=== PATIENT | female | born 1960 | race Caucasian/White ===

== ENCOUNTER 2018-01-30 16:36 | Observation (INO) ==
--- NOTE | 2018-01-30 16:45 | Emergency Department Note ---
Disposition Clinical Impression: Epistaxis Disposition: Home, Self-Care Condition: Good Instructions: Epistaxis (ED) Referrals: [facility] [Provider Group] Melinda Soto CNP [Primary Care Provider] - Forms: ED Satisfaction Letter General Adult HPI - General Chief complaint: ED Epistaxis Stated complaint: Nose bleed Time Seen by Provider: 01/30/18 16:44 Source: patient, family Limitations: no limitations - History of Present Illness Pain Scale: 0 - Related Data Home Medications Medication Instructions Recorded Confirmed Aspirin [Lo-Dose Aspirin EC] 81 mg PO DAILY 06/13/17 01/20/18 Bolus Insulin Pump, 200 Unit 75 - 80 unit MC DAILY 06/13/17 01/20/18 [Onetouch Via] Cholecalciferol (D-3) [Vitamin D] 5,000 unit PO DAILY 06/13/17 01/20/18 Clopidogrel Bisulfate [Plavix] 75 mg PO DAILY 06/13/17 01/20/18 Fish Oil/Dha/Epa [Fish Oil 1,200 1 each PO HS 06/13/17 01/20/18 mg Fish Oil] Furosemide [Lasix] 40 mg PO DAILY 06/13/17 01/20/18 Isosorbide MONOnitrate [Isosorbide 120 mg PO DAILY 06/13/17 01/20/18 Mononitrate ER] Levothyroxine [Synthroid] 100 mcg PO 0630 06/13/17 01/20/18 Losartan Potassium [Cozaar] 50 mg PO DAILY 06/13/17 01/20/18 Metoprolol [Lopressor] 50 mg PO BID 06/13/17 01/20/18 Omeprazole [PriLOSEC] 20 mg PO BID 06/13/17 01/20/18 Pantoprazole Sodium [Protonix] 40 mg PO DAILY 06/13/17 01/20/18 Pramlintide Acetate [Symlinpen 60] 1,500 mcg SQ DAILY 06/13/17 01/20/18 Pravastatin Sodium [Pravachol] 80 mg PO HS 06/13/17 01/20/18 Ranolazine [Ranexa] 500 mg PO BID 06/13/17 01/20/18 Ferrous Sulfate [Iron] 325 mg PO DAILY 01/20/18 01/20/18 Allergies Allergy/AdvReac Type Severity Reaction Status Date / Time bumetanide [From Bumex] Allergy See Verified 01/20/18 08:34 Comments Uizbflj-Dgl-Wbp Reductase Allergy Muscle Pain Verified 01/20/18 08:34 Inhibitor [Statins] SANKET Inhibitors AdvReac Cough Verified 01/20/18 08:34 codeine AdvReac Nausea Verified 01/20/18 08:34 promethazine [From Phenergan] AdvReac Nausea Verified 01/20/18 08:34 Past Medical History - Past Medical History Medical history: Reports: coronary artery disease, diabetes, hyperlipidemia, hypertension Surgical history: Reports: cholecystectomy Psychiatric history: Reports: anxiety - Social History Smoking Status: Never smoker Smokeless Tobacco Status: No Alcohol use: Reports: none Drug use: Reports: none Physical Exam - General Limitations: no limitations General appearance: alert, in no apparent distress Course Vital Signs Temperature 98.1 F 01/30/18 16:37 Pulse Rate 77 01/30/18 16:37 Respiratory Rate 18 01/30/18 16:37 Blood Pressure 180/75 01/30/18 16:37 O2 Sat by Pulse Oximetry 92 01/30/18 16:37 Temperature 98.1 F 01/30/18 16:37 Pulse Rate 77 01/30/18 16:37 Respiratory Rate 18 01/30/18 16:37 Blood Pressure 180/75 01/30/18 16:37 O2 Sat by Pulse Oximetry 92 01/30/18 16:37 Oxygen Delivery Oxygen Delivery Room Air Medical Decision Making - Lab Data Result diagrams: 01/30/18 18:31 Lab Results 01/30/18 Range/Units 18:31 WBC 8.1 (4.3-11.1) K/mcL RBC 4.09 (3.82-4.97) M/mcL Hgb 11.9 (11.5-15.4) g/dL Hct 37.8 (35.3-44.9) % MCV 92.4 (83.0-100.0) fL MCH 29.1 (28.0-33.3) pg MCHC 31.5 L (31.6-35.5) g/dL RDW 13.4 (11.5-14.5) % Plt Count 288 (140-400) K/mcL MPV 11.2 (9.4-12.4) fL Immature Gran % 0.2 (0-4) % Seg Neutrophils % 61.0 % Lymphocytes % 26.5 % Monocytes % 7.5 % Eosinophils % 4.1 % Basophils % 0.7 % Neutrophils # 5.0 (1.6-8.9) K/mcL Lymphocytes # 2.2 (0.6-4.6) K/mcL Monocytes # 0.6 (0.0-1.3) K/mcL Eosinophils # 0.3 (0.0-0.6) K/mcL Basophils # 0.1 (0.0-0.2) K/mcL Critical Care Time Critical Care Time: Yes Total Critical Care Time: 30 Attestation: The high probability of a clinically significant, sudden or life threatening deterioration of the [] system(s) required my full and direct attention, intervention and personal management. The aggregate critical care time was [] minutes. This time is in addition to time spent performing reported procedures but includes the following: [] Data Review and interpretation [] Patient assessment and monitoring of vital signs [] Documentation [] Medication orders and management Attestation Statement - Attestation Attestation: I examined this patient and my medical decision-making was reviewed with the Resident Physician. I agree with the documented findings, disposition and treatment plan as described except to the extent set forth below. [id number] time provided Patient presents with right-sided epistaxis after having a manometry study of her esophagus earlier today. She takes Plavix. Denies taking other blood thinners. Nasal clamp in place at the time of arrival 18:00: right sided anterior 4.5 cm rhino rocket placed by resident under my supervision. we will observe 18:44: Oosing ensued out of the left nare. Packing removed and replaced with a posterior pack. Procedural sedation with IV fentanyl and Versed utilized to make the patient more comfortable during the procedure. The nare would only accommodate approximately three fourths of the packing due to resistance. Patient will require admission. Bleeding has subsided at this time. ENT consulted
[2018-01-30] MEDS ORDERED: Phenylephrine Nasal 0.5% 15 ML BOTTLE NS ONE (16:47)
[2018-01-30] MEDS ORDERED: Lidocaine Viscous Oral Soln 15 ML SOLUTION MM ONE ×2 (16:48→18:36)
--- NOTE | 2018-01-30 17:01 | Emergency Department Note ---
Disposition Clinical Impression: Epistaxis, Hyperglycemia Chronic kidney disease Qualifiers: Chronic kidney disease stage: unspecified stage Qualified Code(s): N18.9 - Chronic kidney disease, unspecified Disposition: Home, Self-Care Condition: Good Instructions: Epistaxis (ED) Referrals: Melinda Soto CNP [Primary Care Provider] - [facility] [Provider Group] Forms: ED Satisfaction Letter Epistaxis HPI - General Chief complaint: ED Epistaxis Stated complaint: Nose bleed Time Seen by Provider: 01/30/18 16:44 Source: patient, family Mode of arrival: ambulatory Limitations: no limitations Nursing Notes Reviewed: Yes Vital Signs Reviewed: Yes - History of Present Illness HPI Narrative: 57-year-old female presents for evaluation of epistaxis. Patient had a recent esophageal manometry procedure by Dr. Coffey with a went in through the nare. Patient states she has been bleeding since then. Patient is on Plavix. Patient notes the bleeding initially was in the right and there and did not feel it dripping down the back of her throat. Patient's been bleeding since the procedure and has not improved with simple pressure. Patient does note clots. Patient denies any other symptoms. - Related Data Home Medications Medication Instructions Recorded Confirmed Aspirin [Lo-Dose Aspirin EC] 81 mg PO DAILY 06/13/17 01/20/18 Bolus Insulin Pump, 200 Unit 75 - 80 unit MC DAILY 06/13/17 01/20/18 [Onetouch Via] Cholecalciferol (D-3) [Vitamin D] 5,000 unit PO DAILY 06/13/17 01/20/18 Clopidogrel Bisulfate [Plavix] 75 mg PO DAILY 06/13/17 01/20/18 Fish Oil/Dha/Epa [Fish Oil 1,200 1 each PO HS 06/13/17 01/20/18 mg Fish Oil] Furosemide [Lasix] 40 mg PO DAILY 06/13/17 01/20/18 Isosorbide MONOnitrate [Isosorbide 120 mg PO DAILY 06/13/17 01/20/18 Mononitrate ER] Levothyroxine [Synthroid] 100 mcg PO 0630 06/13/17 01/20/18 Losartan Potassium [Cozaar] 50 mg PO DAILY 06/13/17 01/20/18 Metoprolol [Lopressor] 50 mg PO BID 06/13/17 01/20/18 Omeprazole [PriLOSEC] 20 mg PO BID 06/13/17 01/20/18 Pantoprazole Sodium [Protonix] 40 mg PO DAILY 06/13/17 01/20/18 Pramlintide Acetate [Symlinpen 60] 1,500 mcg SQ DAILY 06/13/17 01/20/18 Pravastatin Sodium [Pravachol] 80 mg PO HS 06/13/17 01/20/18 Ranolazine [Ranexa] 500 mg PO BID 06/13/17 01/20/18 Ferrous Sulfate [Iron] 325 mg PO DAILY 01/20/18 01/20/18 Allergies Allergy/AdvReac Type Severity Reaction Status Date / Time bumetanide [From Bumex] Allergy See Verified 01/20/18 08:34 Comments Cztjrzg-Uzn-Tnd Reductase Allergy Muscle Pain Verified 01/20/18 08:34 Inhibitor [Statins] SANKET Inhibitors AdvReac Cough Verified 01/20/18 08:34 codeine AdvReac Nausea Verified 01/20/18 08:34 promethazine [From Phenergan] AdvReac Nausea Verified 01/20/18 08:34 All systems ED: reviewed and negative except as stated. Constitutional: Denies: fever Cardiovascular: Denies: chest pain Respiratory: Denies: cough, dyspnea Gastrointestinal: Denies: abdominal pain, nausea, vomiting Past Medical History - Past Medical History Source: patient Medical history: Reports: coronary artery disease, diabetes, hyperlipidemia, hypertension Surgical history: Reports: cholecystectomy Psychiatric history: Reports: anxiety - Social History Smoking Status: Never smoker Smokeless Tobacco Status: No Alcohol use: Reports: none Drug use: Reports: none Physical Exam - General Limitations: no limitations General appearance: alert, in no apparent distress - Head Head exam: atraumatic, normocephalic, normal inspection - Eye Eye exam: Present: normal appearance. Absent: scleral icterus - Expanded ENT Exam External ear exam: Absent: auricular hematoma, auricular trauma Nasal speculum exam: Right: epistaxis (clots noted.) Mouth exam: Present: normal external inspection Throat exam: Present: other (posterior oropharynx blood. no pulsitile bleeding. ) - Neck Neck exam: Present: normal inspection, full ROM - Chest Chest inspection: Present: normal inspection, symmetric chest wall rise - Respiratory Respiratory exam: Present: normal lung sounds bilaterally. Absent: respiratory distress - Cardiovascular Cardiovascular exam: Present: regular rate, normal rhythm. Absent: systolic murmur - Abdominal Exam Abdominal exam: Present: soft - Extremities Exam Extremities exam: Present: normal inspection - Expanded Lower Extremity Exam Neurovascular/Tendon exam: Present: normal capillary refill - Neurological Exam Neurological exam: Present: alert, oriented X3, CN II-XII intact - Skin Skin exam: Present: warm, dry, intact, normal color Course Course Narrative: Patient has epistaxis permanently the right near. Appears BE more posterior oropharynx bleeding. No visualization of anterior bleeding noted. Patient is top localized with lidocaine as well as David-Synephrine. Patient will have conservative measures placed with pressure, if fails with require a pressure packing. - Reevaluation(s) Reevaluation #1: Patient started vomiting. Time: 18:04 Reevaluation #2: Patient now appears to have blood on the left near. Concerns of posterior bleeding of the right near that is now coming out of the left near. Patient still has blood in the posterior oropharynx. Patient will require procedural sedation for posterior nasal packing. Patient did have a right near 7.5 cm posterior anterior nasal packing placed. Patient's packing was placed in the procedural sedation. However resistance was met and approximately one third of the packing was left outside the near. Appears to have hemostatic control while observation in the emergency department. Patient recovered from the procedural sedation well. Time: 18:26 Reevaluation #3: Patient's resting comfortably. Patient appears to have her epistaxis controlled. Patient be admitted to the hospital service for monitoring. Time: 20:13 - Consultations Consultation #1: Spoke with Dr. Do ENT. Consult is placed. Time: 18:52 Vital Signs Temperature 98.1 F 01/30/18 16:37 Pulse Rate 77 01/30/18 16:37 Respiratory Rate 18 01/30/18 16:37 Blood Pressure 180/75 01/30/18 16:37 O2 Sat by Pulse Oximetry 92 01/30/18 16:37 Temperature 98.1 F 01/30/18 16:37 Pulse Rate 78 01/30/18 18:34 Respiratory Rate 20 01/30/18 18:34 Blood Pressure 147/62 01/30/18 18:34 O2 Sat by Pulse Oximetry 97 01/30/18 18:32 Oxygen Delivery Oxygen Delivery [1903] Room Air Oxygen Delivery [1852] Nasal Cannula Oxygen Delivery [1847] Nasal Cannula Oxygen Delivery [1842] Nasal Cannula Oxygen Delivery [1837] Nasal Cannula Oxygen Delivery Room Air Procedures - Epistaxis Control Consent Obtained: verbal consent Time Out Performed: Yes Nostril: right Nose Prepped With: lidocaine, phenylephrine Direct Inspection: unable to visualize Clots Removed by: blowing nose Cautery Used: none Device Inserted: hemostatic balloon Patient Tolerated Procedure: well, no complications - Procedural Sedation Dietary Status: NPO 6 hours prior to procedure H&P (including ROS) documented in medical record: Yes Previous reaction to sedatives/anesthetics: No Dentition: full dentition Airway Assessment: Patient can open mouth completely, TMJ function normal Possible difficult airway: No ASA Classification: CLASS III-Severe systemic disease Plan of Care: Pt appropriate candidate for procedure/moderate/conscious sedation Preparation: data warehousing architect applied, pulse oximeter, capnometry used, supplemental O2 applied, suction/airway equipment at bedside, IV secured Fentanyl: IV Fentanyl Dose: 75 Midazolam: IV Midazolam Dose: 2 Patient Tolerated Procedure: well Complications: none Interventions: oxygen applied Epistaxis - MDM Narrative Medical decision making narrative: Patient presents after nasopharyngeal the manometry procedure with epistaxis. Patient is on Plavix. Patient failed conservative measures with anterior packing with pressure as well as a Rhino Rocket. Patient appears to have more of a posterior bleed. Patient did not tolerate the procedure with anterior packing well. Patient required procedural sedation with fentanyl as well as Versed. Posterior packing was placed however resistance was met and was placed as far as we can. Discussed the case with the on-call ENT. Recommended antibiotics. Patient will be admitted to hospitalist service for evaluation monitoring. Patient is not anemic. Patient does have chronic kidney disease. During the course of the patient's evaluation she was noted be hyperglycemic without eating acidotic. Patient received IV fluids as well as insulin. - Lab Data Lab results reviewed: Yes I reviewed the patient's lab results. Result diagrams: 01/30/18 18:31 01/30/18 18:31 Lab Results 01/30/18 01/30/18 01/30/18 Range/Units 18:31 18:31 18:31 WBC 8.1 (4.3-11.1) K/mcL RBC 4.09 (3.82-4.97) M/mcL Hgb 11.9 (11.5-15.4) g/dL Hct 37.8 (35.3-44.9) % MCV 92.4 (83.0-100.0) fL MCH 29.1 (28.0-33.3) pg MCHC 31.5 L (31.6-35.5) g/dL RDW 13.4 (11.5-14.5) % Plt Count 288 (140-400) K/mcL MPV 11.2 (9.4-12.4) fL Immature Gran % 0.2 (0-4) % Seg Neutrophils % 61.0 % Lymphocytes % 26.5 % Monocytes % 7.5 % Eosinophils % 4.1 % Basophils % 0.7 % Neutrophils # 5.0 (1.6-8.9) K/mcL Lymphocytes # 2.2 (0.6-4.6) K/mcL Monocytes # 0.6 (0.0-1.3) K/mcL Eosinophils # 0.3 (0.0-0.6) K/mcL Basophils # 0.1 (0.0-0.2) K/mcL PT 10.6 (9.4-12.1) Seconds INR 1.0 Sodium 134 L (136-145) mEq/L Potassium 5.2 H (3.5-5.1) mEq/L Chloride 101 (98-107) mEq/L Carbon Dioxide 24 (23-29) mEq/L BUN 56 H (6-20) mg/dL Creatinine 2.26 H (0.60-1.20) mg/dL Est GFR ( Amer) 27 L (> 60) Est GFR (Non-Af Amer) 22 L (> 60) BUN/Creatinine Ratio 25 (6-26) Glucose 548 H* (70-105) mg/dL Calculated Osmolality 318 H (280-300) Calcium 8.3 L (8.6-10.3) mg/dL Total Bilirubin 0.5 (0.3-1.0) mg/dL AST 12 L (13-39) Units/L ALT 17 (7-52) Units/L Alkaline Phosphatase 69 (34-104) Units/L Serum Total Protein 6.4 (6.4-8.9) g/dL Albumin 3.8 (3.5-5.7) g/dL Globulin 2.6 (2.4-3.5) g/dL Albumin/Globulin Ratio 1.5 (1.1-2.2) Blood Type Antibody Screen 01/30/18 Range/Units 18:31 WBC (4.3-11.1) K/mcL RBC (3.82-4.97) M/mcL Hgb (11.5-15.4) g/dL Hct (35.3-44.9) % MCV (83.0-100.0) fL MCH (28.0-33.3) pg MCHC (31.6-35.5) g/dL RDW (11.5-14.5) % Plt Count (140-400) K/mcL MPV (9.4-12.4) fL Immature Gran % (0-4) % Seg Neutrophils % % Lymphocytes % % Monocytes % % Eosinophils % % Basophils % % Neutrophils # (1.6-8.9) K/mcL Lymphocytes # (0.6-4.6) K/mcL Monocytes # (0.0-1.3) K/mcL Eosinophils # (0.0-0.6) K/mcL Basophils # (0.0-0.2) K/mcL PT (9.4-12.1) Seconds INR Sodium (136-145) mEq/L Potassium (3.5-5.1) mEq/L Chloride (98-107) mEq/L Carbon Dioxide (23-29) mEq/L BUN (6-20) mg/dL Creatinine (0.60-1.20) mg/dL Est GFR ( Amer) (> 60) Est GFR (Non-Af Amer) (> 60) BUN/Creatinine Ratio (6-26) Glucose (70-105) mg/dL Calculated Osmolality (280-300) Calcium (8.6-10.3) mg/dL Total Bilirubin (0.3-1.0) mg/dL AST (13-39) Units/L ALT (7-52) Units/L Alkaline Phosphatase (34-104) Units/L Serum Total Protein (6.4-8.9) g/dL Albumin (3.5-5.7) g/dL Globulin (2.4-3.5) g/dL Albumin/Globulin Ratio (1.1-2.2) Blood Type A POSITIVE Antibody Screen NEGATIVE - EKG Data EKG attestation: Yes I reviewed and interpreted this EKG. EKG shows normal: sinus rhythm Rate: normal Rhythm: NSR [place]/QRS: normal Interpretation: no acute changes Wilbert - Wilbert Situation: Demographics Background: Presenting Complaint Assessment: Vital Signs, Course and respsone to treatment, Patient/Family Expectation Recommendation: Barrier(s) to disposition, Recommendation based on pending studies, treatments, or consults Wilbert Report Given to: Dr. Korey Atkins Repor Time: 20:13
[2018-01-30] MEDS ORDERED: Ondansetron ODT 4 MG TAB.RAPDIS SL ONE (18:01)
[2018-01-30] MEDS ORDERED: *HR* Ketamine 500 MG/5 ML MDV IVP ONE (18:14)
[2018-01-30] MEDS ORDERED: *HR* FentaNYL (PF) 100 MCG/2 ML VIAL IVP ONE (18:19)
[2018-01-30] MEDS ORDERED: 0.9 % Sodium Chloride 1,000 ML IVC ONE (18:19)
[2018-01-30] MEDS ORDERED: *HR* Midazolam HCl 2 MG/2 ML VIAL IVP ONE (18:19)
[2018-01-30] MEDS ORDERED: Lidocaine Viscous Oral Soln 15 ML SOLUTION ONE (18:36)
[2018-01-30 18:47] LABS: Basophils # 0.1 K/mcL (0.0-0.2); Basophils % 0.7 %; Eosinophils # 0.3 K/mcL (0.0-0.6); Eosinophils % 4.1 %; Hematocrit 37.8 % (35.3-44.9); Hemoglobin 11.9 g/dL (11.5-15.4); Immature Granulocytes % 0.2 % (0-4); Lymphocytes # 2.2 K/mcL (0.6-4.6); Lymphocytes % 26.5 %; Mean Corpuscular HGB Conc 31.5 g/dL (31.6-35.5); Mean Corpuscular Hemoglobin 29.1 pg (28.0-33.3); Mean Corpuscular Volume 92.4 fL (83.0-100.0); Mean Platelet Volume 11.2 fL (9.4-12.4); Monocytes # 0.6 K/mcL (0.0-1.3); Monocytes % 7.5 %; Platelet Count 288 K/mcL (140-400); Red Blood Count 4.09 M/mcL (3.82-4.97); Red Cell Distribution Width 13.4 % (11.5-14.5)
[2018-01-30] MEDS ORDERED: ceFAZolin 1,000 MG in Water for inj. (sterile) 10 ML IVP ONE (18:52)
[2018-01-30] MEDS ORDERED: Tranexamic Acid 1,000 MG/10 ML VIAL NS ONE (19:00)
[2018-01-30 19:11] LABS: Albumin 3.8 g/dL (3.5-5.7); Albumin/Globulin Ratio 1.5 (1.1-2.2); Bilirubin,Total 0.5 mg/dL (0.3-1.0); Calcium 8.3 mg/dL (8.6-10.3); Globulin 2.6 g/dL (2.4-3.5); Potassium 5.2 mEq/L (3.5-5.1); Total Protein 6.4 g/dL (6.4-8.9)
[2018-01-30 19:13] LABS: Prothrombin Time 10.6 Seconds (9.4-12.1)
[2018-01-30] MEDS ORDERED: Insulin Human Regular 10 UNIT in 0.9 % Sodium Chloride 10 ML IV ONE (19:25)
[2018-01-30] MEDS ORDERED: Naloxone 0.4 MG/ML INJ IVP PRN (20:50)
[2018-01-30] MEDS ORDERED: Dextrose Gel 15 GM/37.5 ML TUBE PO PRN ×2 (20:55)
[2018-01-30] MEDS ORDERED: *HR* Dextrose 50 % in Water (Syg) 50 ML SYRINGE IVP PRN (20:55)
[2018-01-30] MEDS ORDERED: D5% in Water 1,000 ML IVC PRN (20:55)
[2018-01-30] MEDS ORDERED: Insulin LISPRO 300 UNITS/3 ML VIAL SQ SCH (21:00)
[2018-01-30] MEDS ORDERED: Ondansetron 4 MG/2 ML VIAL IVP PRN (21:05)
--- NOTE | 2018-01-30 21:05 | Internal Med History&Physical ---
<Roddy Muñiz Jonah - Last Filed: 01/30/18 22:13> Date of Encounter: 01/30/18 Time of Encounter: 20:00 Assessment and Plan (1) Epistaxis Status: Acute Patient epistaxis secondary to esophageal manometry was performed earlier today. Bleeding appears to be controlled after placement Rhino Rocket. ED did note resistance upon placement. Hemoglobin 11.9 (baseline 12-13). Vital signs are stable. Continue to monitor for hypotension. Place on telemetry. ENT was called in the ED, and recommended packing and Ancef. ENT will evaluate in the morning. Monitor H&H. Hold aspirin and Plavix for now. (2) Hyperglycemia Status: Acute Blood glucose 548. Given 10 units of insulin. Will recheck blood glucose and monitor q6h. No evidence of acidosis. Not consistent with DKA. Patient has had nausea and vomiting, but this is more likely related to epistaxis. PRN zofran. Patient has an insulin pump, will not use pump, though will place on sliding scale insulin and hospital. Diabetic diet. (3) CKD (chronic kidney disease), stage IV Status: Acute Creatinine 2.26, with baseline around 2.4. No signs of acute kidney injury. Hyperkalemia with potassium 5.2 (baseline 4.8-5.0) - mild elevation likely secondary to hyperosmolarity and hyperglycemia. I expect her potassium will decrease his better glycemic control is obtained. Continue to monitor electrolytes and renal function. Follows with Dr. Rodriguez, will consult nephrology management. (4) Type 1 diabetes mellitus Status: Acute Patient has an insulin pump. Diagnosed with diabetes at age 17. Hold insulin pump, place on diabetic diet and sliding scale insulin. Qualifiers: Diabetes mellitus complication status: without complication Qualified Code( s): E10.9 - Type 1 diabetes mellitus without complications (5) Anemia in chronic kidney disease (CKD) Status: Acute Patient's hemoglobin 11.9, there is no need for ESAs currently. Will check iron studies, B12, and folate Continue to monitor in the setting of epistaxis Qualifiers: Chronic kidney disease stage: stage 4 (severe) Qualified Code(s): N18.4 - Chronic kidney disease, stage 4 (severe); D63.1 - Anemia in chronic kidney disease; D63.1 - Anemia in chronic kidney disease (6) Chronic kidney disease-mineral and bone disorder Status: Acute Patient has hypocalcemia (8.3) with normal albumin. Will check both parathyroid and vitamin D levels. (7) CAD (coronary artery disease), [place] coronary artery Status: Acute Status post 2 stents, and 2010 and 2013. Continue medications for angina. Patient denies current chest pain. ECG shows normal sinus rhythm with no acute changes. Hold aspirin and Plavix in the setting of epistaxis. If stabilized they can be restarted in the morning. Qualifiers: [place] vs. transplanted heart: [place] heart Associated angina: with unspecified angina Qualified Code(s): I25.119 - Atherosclerotic heart disease of [place] coronary artery with unspecified angina pectoris (8) Hypertension Status: Acute Currently normotensive. Continue home medications. Qualifiers: Hypertension type: essential hypertension Qualified Code(s): I10 - Essential (primary) hypertension (9) DVT prophylaxis Status: Acute Internal Medicine - H&P: HPI Chief complaint: Epistaxis Admitted From: Emergency Dept History of present illness: Ms. Gracia is a 57 year old female with PMH of CAD s/p 2 stents, type 1 DM, HTN, and CAD stage IV, presented to the emergency department with concerns of epistaxis after having esophageal manometry approximately 7-8 hours prior to arrival. Procedure was conducted with endoscope going through the nare, and she states that she has been bleeding since that time. Attempts were made to stop the bleeding with Afrin, pressure, and anterior packing, but these were unsuccessful so than a Rhino Rocket was placed in the emergency department. She states that she has been coughing up some blood clots. Currently she has some nausea and vomiting. She has had some intermittent lightheadedness and one episode of palpitations, but denies the symptoms currently. She also reports that she has not had very much to eat today. She denies other complaints. She does report that she has dark stools but is following with GI for this. No acute changes. She denies fevers, chills, syncope, falls, chest pain, dyspnea, abdominal pain, change in bowels, dysuria, hematuria, or leg pain /swelling. Past Med Surg Social Fam HX - Past Medical History Medical history: coronary artery disease, diabetes, hyperlipidemia, hypertension Psychiatric history: anxiety - Past Surgical History Surgical History: cholecystectomy - Social History Smoking Status: Never smoker Smokeless Tobacco Status: No Alcohol use: none Drug use: none Internal Medicine - H&P: Meds Aspirin [Lo-Dose Aspirin EC] 81 mg PO DAILY 06/13/17 [History] Bolus Insulin Pump, 200 Unit [Onetouch Via] 75 - 80 unit MC DAILY 06/13/17 [ History] Cholecalciferol (D-3) [Vitamin D] 5,000 unit PO DAILY 06/13/17 [History] Clopidogrel Bisulfate [Plavix] 75 mg PO DAILY 06/13/17 [History] Fish Oil/Dha/Epa [Fish Oil 1,200 mg Fish Oil] 1 each PO HS 06/13/17 [History] Furosemide [Lasix] 40 mg PO DAILY 06/13/17 [History] Isosorbide MONOnitrate [Isosorbide Mononitrate ER] 120 mg PO DAILY 06/13/17 [ History] Levothyroxine [Synthroid] 100 mcg PO 0630 06/13/17 [History] Losartan Potassium [Cozaar] 50 mg PO DAILY 06/13/17 [History] Metoprolol [Lopressor] 50 mg PO BID 06/13/17 [History] Pravastatin Sodium [Pravachol] 80 mg PO HS 06/13/17 [History] Ranolazine [Ranexa] 500 mg PO BID 06/13/17 [History] Omeprazole [PriLOSEC] 40 mg PO BID 01/30/18 [History] Amoxicillin/Clavulanate [Augmentin] 875 mg PO BIDWM #14 tablet 02/01/18 [Rx] 3 Allergy/AdvReac Type Severity Reaction Status Date / Time bumetanide [From Bumex] Allergy See Verified 01/20/18 08:34 Comments Evvtoub-Hva-Rfp Reductase Allergy Muscle Pain Verified 01/20/18 08:34 Inhibitor [Statins] SANKET Inhibitors AdvReac Cough Verified 01/20/18 08:34 codeine AdvReac Nausea Verified 01/20/18 08:34 promethazine [From Phenergan] AdvReac Nausea Verified 01/20/18 08:34 All Systems PM: A 10-system review of systems was performed and is negative for pertinent findings except as documented above in the HPI. - Constitutional Vitals: Temp Pulse Resp BP Pulse Ox 98.1 F 69 16 114/97 96 01/30/18 16:37 01/30/18 20:19 01/30/18 20:19 01/30/18 20:19 01/30/18 20:19 General appearance: Present: A&O X 3, no acute distress, answers questions appropriately - Head Head exam: Present: atraumatic, normocephalic - Eye Eye exam: Present: EOMI, PERRL, conjuntiva pink, sclera anicteric - ENT ENT exam: Present: mucous membranes moist Additional comments: Rhino Rocket in right nare. No obvious bleeding in left nare. Oropharynx without bleeding, or noticeable blood draining down the back of her throat. - Neck Neck exam general surgery: Present: supple, trachea midline. Absent: lymphadenopathy - Respiratory Respiratory exam: Present: CTAB. Absent: accessory muscle use, rales, rhonchi, wheezes - Cardiovascular Cardiovascular exam: Present: RRR, +S1, +S2. Absent: diastolic murmur, systolic murmur - GI/Abdominal GI/Abdominal exam: Present: normal bowel sounds, soft, no peritoneal signs. Absent: distended, tenderness - Extremities Exam Extremities exam: Present: warm, radial pulses palpable and symmetrical. Absent : calf tenderness, cyanotic, pedal edema - Neurological Exam Neurological exam: Present: CN II-XII intact, oriented X3, no focal deficits. Absent: facial droop, speech deficit - Skin Skin exam: Present: dry, intact Internal Med - H&P Results - Labs CBC & Chem 7: 01/30/18 18:31 01/30/18 18:31 <Veronika Nair - Last Filed: 02/16/18 04:11> Date of Encounter: 02/16/18 Internal Medicine - H&P: HPI History of present illness: Ms. Gracia is a 57 year old female All Systems PM: A 10-system review of systems was performed and is negative for pertinent findings except as documented above in the HPI. - Constitutional Vitals: Temp Pulse Resp BP Pulse Ox 98.2 F 73 15 139/55 99 02/01/18 10:38 02/01/18 10:38 02/01/18 10:38 02/01/18 10:38 02/01/18 10:38 Internal Med - H&P Results - Labs CBC & Chem 7: 02/01/18 03:05 02/01/18 03:05 - Attending Attestation I personally and independently interviewed and examined the patient, and I reviewed the patient's medical record. I am in agreement with the residents assessment and proposed treatment plan. I discussed my findings and recommendation with the patient and answer his questions. The patient's medical records were edited to accurately reflect this encounter.
[2018-01-30] MEDS: Ranolazine 500 MG TAB.ER.12H PO SCH (22:14)
[2018-01-30] MEDS: (Fish Oil/Dha/Epa [Fish Oil 1,200 Mg Fish Oil] 1 EACH) PO SCH (22:19)
[2018-01-30] MEDS: (Pravastatin Sodium [Pravachol] 80 MG) PO SCH (22:20)
[2018-01-30] MEDS ORDERED: ceFAZolin 1,000 MG in Water for inj. (sterile) 20 ML 10 ML IVP ONE (23:00)
[2018-01-31] MEDS: Insulin LISPRO 300 UNITS/3 ML VIAL SQ SCH ×3 (00:40→12:26)
[2018-01-31] MEDS: Acetaminophen 325 MG TABLET PO PRN ×2 (02:09→16:34)
[2018-01-31 06:40] LABS: Basophils % 0.5 %; Eosinophils # 0.3 K/mcL (0.0-0.6); Eosinophils % 3.4 %; Hematocrit 30.4 % (35.3-44.9); Immature Granulocytes % 0.4 % (0-4); Lymphocytes # 2.3 K/mcL (0.6-4.6); Lymphocytes % 28.7 %; Mean Corpuscular HGB Conc 31.9 g/dL (31.6-35.5); Mean Corpuscular Hemoglobin 28.9 pg (28.0-33.3); Mean Corpuscular Volume 90.5 fL (83.0-100.0); Mean Platelet Volume 11.5 fL (9.4-12.4); Monocytes # 0.7 K/mcL (0.0-1.3); Monocytes % 8.8 %; Neutrophils # 4.6 K/mcL (1.6-8.9); Platelet Count 236 K/mcL (140-400); Red Blood Count 3.36 M/mcL (3.82-4.97); Red Cell Distribution Width 13.8 % (11.5-14.5); Segmented Neutrophils % 58.2 %
[2018-01-31 06:44] LABS: Hemoglobin 9.7 g/dL (11.5-15.4)
[2018-01-31 07:04] LABS: % Iron Saturation 21 % (15-50); Calcium 8.3 mg/dL (8.6-10.3); Iron 67 mcg/dL (50-170); Potassium 5.2 mEq/L (3.5-5.1); Transferrin 233 mg/dL (203-362)
[2018-01-31 07:26] LABS: Vitamin B12 495 pg/mL (250-1100)
[2018-01-31 07:57] LABS: Folate > 22.3 ng/mL (3.0-16.0)
--- NOTE | 2018-01-31 08:04 | Internal Med Progress Note ---
Date of Encounter: 01/31/18 Time of Encounter: 08:02 - Assessment and plan (1) Acute blood loss anemia Current Visit: Yes Status: Acute Assessment and plan: acute blood loss anemia 2ry to severe epistaxis after procedure, accompanied by hypotension continue packing ENT consulted monitor HH, consider transfusion if needed start IVF HOld ASA and plavix (2) Epistaxis Current Visit: Yes Status: Acute (3) Chronic kidney disease-mineral and bone disorder Current Visit: Yes Status: Acute Assessment and plan: CKD4, secondary hyperparathyroidism follow with nephrology as outpatient (4) Hypertension Current Visit: Yes Status: Acute Assessment and plan: hold losartan 50 mg daily due to hypotension Qualifiers: Hypertension type: essential hypertension Qualified Code(s): I10 - Essential (primary) hypertension (5) Type 1 diabetes mellitus Current Visit: Yes Status: Acute Assessment and plan: uses own pump no DKA Qualifiers: Diabetes mellitus complication status: without complication Qualified Code( s): E10.9 - Type 1 diabetes mellitus without complications (6) CAD (coronary artery disease), [place] coronary artery Current Visit: Yes Status: Acute Assessment and plan: Hx of stents in 2010 and 2013 continue metoprolol Qualifiers: [place] vs. transplanted heart: [place] heart Associated angina: with unspecified angina Qualified Code(s): I25.119 - Atherosclerotic heart disease of [place] coronary artery with unspecified angina pectoris - Subjective Interval history: had severe bleeding from her right nare, has not recurred after packing, denies CP or SOB, no abdominal pain , glucose has bee very high, no fever, no chills or dysuria - Constitutional Vitals: Temp Pulse Resp BP Pulse Ox 98.2 F 64 15 104/71 100 01/31/18 07:31 01/31/18 07:31 01/31/18 07:31 01/31/18 07:31 01/31/18 07:31 General appearance: Present: A&O X 3, morbidly obese, no acute distress, answers questions appropriately - Head Head exam: Present: atraumatic, normocephalic - Eye Eye exam: Present: PERRL, conjuntiva pink, sclera anicteric Pupils: Present: PERRL - ENT Additional comments: packing on right nare - Neck Neck exam general surgery: Present: supple, trachea midline. Absent: lymphadenopathy - Respiratory Respiratory exam: Present: CTAB. Absent: accessory muscle use, rales, rhonchi, wheezes - Cardiovascular Cardiovascular exam: Present: RRR, +S1, +S2. Absent: diastolic murmur, gallop, rubs, systolic murmur - GI/Abdominal GI/Abdominal exam: Present: normal bowel sounds, soft, no peritoneal signs. Absent: distended, tenderness Additional comments: insulin pump in place - Extremities Exam Extremities exam: Present: warm, radial pulses palpable and symmetrical. Absent : calf tenderness, cyanotic, pedal edema - Neurological Exam Neurological exam: Present: CN II-XII intact, oriented X3, no focal deficits. Absent: pronater drift, facial droop, speech deficit - Skin Skin exam: Present: dry, intact Internal Medicine: Result - Labs CBC & Chem 7: 01/31/18 05:16 01/31/18 05:16 Labs: Short CBC 01/31/18 Range/Units 05:16 WBC 7.9 (4.3-11.1) K/mcL Hgb 9.7 L D (11.5-15.4) g/dL Hct 30.4 L (35.3-44.9) % Plt Count 236 (140-400) K/mcL Neutrophils # 4.6 (1.6-8.9) K/mcL BMP 01/31/18 05:16 Sodium 138 Potassium 5.2 H Chloride 105 Carbon Dioxide 25 BUN 69 H Creatinine 2.52 H Glucose 275 H Calcium 8.3 L - ABG Interpretation ABG results: PT/INR, D-dimer PT 10.6 Seconds (9.4-12.1) 01/30/18 18:31 Consult Discharge Plan - Plan Referrals: Melinda Soto TUB WASH OPERATOR [Primary Care Provider] -
[2018-01-31] MEDS: Isosorbide MONOnitrate (24 HR) 60 MG TAB.ER.24H PO SCH (08:41)
[2018-01-31] MEDS: Ranolazine 500 MG TAB.ER.12H PO SCH ×2 (08:41→21:34)
[2018-01-31] MEDS: 0.9 % Sodium Chloride 1,000 ML IVC SCH ×2 (08:42→21:35)
[2018-01-31] MEDS: Cholecalciferol (D-3) 1,000 UNIT TABLET PO SCH (08:42)
[2018-01-31 12:32] LABS: Estimated Average Glucose 189 mg/dl; Hemoglobin A1C 8.2 %
[2018-01-31 16:29] LABS: Hematocrit 32.1 % (35.3-44.9)
[2018-01-31] MEDS: (Fish Oil/Dha/Epa [Fish Oil 1,200 Mg Fish Oil] 1 EACH) PO SCH (20:39)
[2018-01-31] MEDS: (Pravastatin Sodium [Pravachol] 80 MG) PO SCH (20:39)
[2018-01-31] MEDS ORDERED: *HR* LORazepam 2 MG/ML VIAL IVP PRN (21:12)
[2018-02-01 04:01] LABS: Hematocrit 31.3 % (35.3-44.9); Hemoglobin 9.9 g/dL (11.5-15.4); Mean Corpuscular HGB Conc 31.6 g/dL (31.6-35.5); Mean Corpuscular Hemoglobin 28.8 pg (28.0-33.3); Mean Platelet Volume 11.5 fL (9.4-12.4); Platelet Count 242 K/mcL (140-400); Red Blood Count 3.44 M/mcL (3.82-4.97); Red Cell Distribution Width 13.9 % (11.5-14.5)
[2018-02-01 04:23] LABS: Calcium 8.7 mg/dL (8.6-10.3); Potassium 4.9 mEq/L (3.5-5.1)
--- NOTE | 2018-02-01 07:52 | Internal Med Progress Note ---
Date of Encounter: 02/01/18 Time of Encounter: 07:49 - Assessment and plan (1) Acute blood loss anemia Current Visit: Yes Status: Acute Assessment and plan: acute blood loss anemia 2ry to severe epistaxis after procedure, accompanied by hypotension continue packing ENT consulted monitor HH, consider transfusion if needed May continue IVF HOld ASA and plavix (2) Epistaxis Current Visit: Yes Status: Acute Assessment and plan: Amoxicillin and clavulanic acid day #2 (3) Chronic kidney disease-mineral and bone disorder Current Visit: Yes Status: Acute Assessment and plan: CKD4, secondary hyperparathyroidism follow with nephrology as outpatient (4) Hypertension Current Visit: Yes Status: Acute Assessment and plan: Resume losartan 50 mg daily , was held due to episodes of hypotension Hydralazine IV as needed Qualifiers: Hypertension type: essential hypertension Qualified Code(s): I10 - Essential (primary) hypertension (5) Type 1 diabetes mellitus Current Visit: Yes Status: Acute Assessment and plan: uses own pump no DKA Qualifiers: Diabetes mellitus complication status: without complication Qualified Code( s): E10.9 - Type 1 diabetes mellitus without complications (6) CAD (coronary artery disease), [place] coronary artery Current Visit: Yes Status: Acute Assessment and plan: Hx of stents in 2010 and 2013 continue metoprolol Qualifiers: [place] vs. transplanted heart: [place] heart Associated angina: with unspecified angina Qualified Code(s): I25.119 - Atherosclerotic heart disease of [place] coronary artery with unspecified angina pectoris - Subjective Interval history: Packing starting to come off, had severe bleeding from her right nare, has not recurred after packing, denies CP or SOB, no abdominal pain , glucose was very high upon admission, no fever, no chills or dysuria - Constitutional Vitals: Temp Pulse Resp BP Pulse Ox 98.3 F 88 15 184/66 97 02/01/18 07:15 02/01/18 07:15 02/01/18 07:15 02/01/18 07:15 02/01/18 07:15 General appearance: Present: A&O X 3, morbidly obese, no acute distress, answers questions appropriately Exam: Head Head exam: Present: atraumatic, normocephalic - Eye Eye exam: Present: PERRL, conjuntiva pink, sclera anicteric Pupils: Present: PERRL - ENT Additional comments: packing on right nare - Neck Neck exam general surgery: Present: supple, trachea midline. Absent: lymphadenopathy - Respiratory Respiratory exam: Present: CTAB. Absent: accessory muscle use, rales, rhonchi, wheezes - Cardiovascular Cardiovascular exam: Present: RRR, +S1, +S2. Absent: diastolic murmur, gallop, rubs, systolic murmur - GI/Abdominal GI/Abdominal exam: Present: normal bowel sounds, soft, no peritoneal signs. Absent: distended, tenderness Additional comments: insulin pump in place - Extremities Exam Extremities exam: Present: warm, radial pulses palpable and symmetrical. Absent : calf tenderness, cyanotic, pedal edema - Neurological Exam Neurological exam: Present: CN II-XII intact, oriented X3, no focal deficits. Absent: pronater drift, facial droop, speech deficit - Skin Skin exam: Present: dry, intact Internal Medicine: Result - Labs CBC & Chem 7: 02/01/18 03:05 02/01/18 03:05 Labs: Short CBC 01/31/18 02/01/18 Range/Units 16:16 03:05 WBC 8.7 (4.3-11.1) K/mcL Hgb 10.0 L 9.9 L (11.5-15.4) g/dL Hct 32.1 L 31.3 L (35.3-44.9) % Plt Count 242 (140-400) K/mcL BMP 02/01/18 03:05 Sodium 140 Potassium 4.9 Chloride 109 H Carbon Dioxide 25 BUN 60 H Creatinine 2.28 H Glucose 233 H Calcium 8.7 - ABG Interpretation ABG results: PT/INR, D-dimer PT 10.6 Seconds (9.4-12.1) 01/30/18 18:31 Consult Discharge Plan - Plan Referrals: Melinda Soto, PUBLICITY AGENT [Primary Care Provider] -
[2018-02-01] MEDS: Isosorbide MONOnitrate (24 HR) 60 MG TAB.ER.24H PO SCH (08:03)
[2018-02-01] MEDS: Cholecalciferol (D-3) 1,000 UNIT TABLET PO SCH (08:03)
[2018-02-01] MEDS: Ranolazine 500 MG TAB.ER.12H PO SCH (08:04)
--- NOTE | 2018-02-01 09:30 | ENT - Consult Note ---
Date of Encounter: 02/01/18 Time of Encounter: 08:30 Assessment and Plan (1) Epistaxis Current Visit: Yes Status: Acute Patient has had removal of Rhinostat balloon packing without complication. Fibrillar packing was placed which should dissolve over the next several days nasal spray decongestant 3 times a day for 3 days, use saline nasal spray 3 times a day for 30 days the Augmentin 875 mg twice a day for another 7 days and times the blood from the events lingers in the sinuses and can be nidus for infection and the Augmentin for a week should treat for this. Would hold her Plavix for another 48 hours History of Present Illness Consult date: 02/01/18 Comment: Epistaxis History of present illness: 57-year-old female who was having EGD and placement of gastric manometer Friday and had subsequent epistaxis right nasal cavity. This was controlled with Rhinostat balloon packing. Her Plavix has been held lune packing has extruded by greater than 70% she has not had any bleeding since pack was placed 48 hours ago. She has also been started on Augmentin phylactically to prevent toxic shock syndrome which can occur with balloon packs, rarely. Been asked to remove the balloon packing and because it is greater than 70% extruded without further bleeding this will be done Past Med Surg Social Fam HX - Past Medical History Medical history: coronary artery disease, diabetes, hyperlipidemia, hypertension Psychiatric history: anxiety - Past Surgical History Surgical History: cholecystectomy - Social History Smoking Status: Never smoker Smokeless Tobacco Status: No Alcohol use: none Drug use: none - Family History Mother Adopted: [place]: Naz Baker Age: 83 Family Member Ethnicity: Non- Living Status: Still Living Hx Family Cardiac Disorders: Yes (Afib) Hx Family Respiratory Disorders: Yes (COPD) Father Adopted: [place]: Casper Baker Age: 87 Family Member Ethnicity: Non- Living Status: Still Living Hx Family Cardiac Disorders: Yes (MIx2, HTN) Hx Family Endocrine Disorder: Yes (Diabetes) Medications and Allergies Aspirin [Lo-Dose Aspirin EC] 81 mg PO DAILY 06/13/17 [History] Bolus Insulin Pump, 200 Unit [Onetouch Via] 75 - 80 unit MC DAILY 06/13/17 [ History] Cholecalciferol (D-3) [Vitamin D] 5,000 unit PO DAILY 06/13/17 [History] Clopidogrel Bisulfate [Plavix] 75 mg PO DAILY 06/13/17 [History] Fish Oil/Dha/Epa [Fish Oil 1,200 mg Fish Oil] 1 each PO HS 06/13/17 [History] Furosemide [Lasix] 40 mg PO DAILY 06/13/17 [History] Isosorbide MONOnitrate [Isosorbide Mononitrate ER] 120 mg PO DAILY 06/13/17 [ History] Levothyroxine [Synthroid] 100 mcg PO 0630 06/13/17 [History] Losartan Potassium [Cozaar] 50 mg PO DAILY 06/13/17 [History] Metoprolol [Lopressor] 50 mg PO BID 06/13/17 [History] Pravastatin Sodium [Pravachol] 80 mg PO HS 06/13/17 [History] Ranolazine [Ranexa] 500 mg PO BID 06/13/17 [History] Omeprazole [PriLOSEC] 40 mg PO BID 01/30/18 [History] 3 Allergy/AdvReac Type Severity Reaction Status Date / Time bumetanide [From Bumex] Allergy See Verified 01/20/18 08:34 Comments Iclsyva-Hrl-Gwo Reductase Allergy Muscle Pain Verified 01/20/18 08:34 Inhibitor [Statins] SANKET Inhibitors AdvReac Cough Verified 01/20/18 08:34 codeine AdvReac Nausea Verified 01/20/18 08:34 promethazine [From Phenergan] AdvReac Nausea Verified 01/20/18 08:34 ENT Exam Initial Vital Signs Temp Pulse Resp BP Pulse Ox 98.1 F 77 18 180/75 92 01/30/18 16:37 01/30/18 16:37 01/30/18 16:37 01/30/18 16:37 01/30/18 16:37 - General physical appearance no distress, obese - Eyes PERRL, normal ocular movement - ENT normal pinna, normal nares, CN 2-12 grossly intact, Other (Left nasal cavity without blood erythema or purulence, cavity balloon packing is deflated of 3 mL of air and then removed. Prior to removal Afrin/lidocaine spray was used rise to pack was also used after the pack was removed. She had small amount of oozing along the inferior turbinate which was easily controlled with the spray and fibrillar loose packing. 2 x 2 gauze was used under the right nostril as a drip pad) - Neck no masses, no lymphadectomy, other (Morbidly obese neck, could not palpate any mass) - Respiratory normal expansion, normal respiratory effort Exam Initial Vital Signs Temp Pulse Resp BP Pulse Ox 98.1 F 77 18 180/75 92 01/30/18 16:37 01/30/18 16:37 01/30/18 16:37 01/30/18 16:37 01/30/18 16:37 Results - Labs 02/01/18 03:05 02/01/18 03:05 Abnormal lab results RBC 3.44 M/mcL (3.82-4.97) L 02/01/18 03:05 Hgb 9.9 g/dL (11.5-15.4) L 02/01/18 03:05 Hct 31.3 % (35.3-44.9) L 02/01/18 03:05 Chloride 109 mEq/L (98-107) H 02/01/18 03:05 BUN 60 mg/dL (6-20) H 02/01/18 03:05 Creatinine 2.28 mg/dL (0.60-1.20) H 02/01/18 03:05 Est GFR ( Amer) 27 (> 60) L 02/01/18 03:05 Est GFR (Non-Af Amer) 22 (> 60) L 02/01/18 03:05 Glucose 233 mg/dL (70-105) H 02/01/18 03:05 POC Glucose 252 mg/dL (58-89) H 02/01/18 05:28 Hemoglobin A1c 8.2 % (-5.6) H 01/31/18 05:16 Calculated Osmolality 314 (280-300) H 02/01/18 03:05 AST 12 Units/L (13-39) L 01/30/18 18:31 Folate > 22.3 ng/mL (3.0-16.0) H 01/31/18 05:16 PTH Intact 140.7 pg/ml (10.0-65.0) H 01/31/18 05:16 Diabetes panel 01/31/18 02/01/18 Range/Units 05:16 03:05 Sodium 140 (136-145) mEq/L Potassium 4.9 (3.5-5.1) mEq/L Chloride 109 H (98-107) mEq/L Carbon Dioxide 25 (23-29) mEq/L BUN 60 H (6-20) mg/dL Creatinine 2.28 H (0.60-1.20) mg/dL Glucose 233 H (70-105) mg/dL Hemoglobin A1c 8.2 H ( - 5.6) % Calcium 8.7 (8.6-10.3) mg/dL Calcium panel 02/01/18 Range/Units 03:05 Calcium 8.7 (8.6-10.3) mg/dL Pituitary panel 02/01/18 Range/Units 03:05 Sodium 140 (136-145) mEq/L Potassium 4.9 (3.5-5.1) mEq/L Chloride 109 H (98-107) mEq/L Carbon Dioxide 25 (23-29) mEq/L BUN 60 H (6-20) mg/dL Creatinine 2.28 H (0.60-1.20) mg/dL Glucose 233 H (70-105) mg/dL Calcium 8.7 (8.6-10.3) mg/dL Adrenal panel 02/01/18 Range/Units 03:05 Sodium 140 (136-145) mEq/L Potassium 4.9 (3.5-5.1) mEq/L Chloride 109 H (98-107) mEq/L Carbon Dioxide 25 (23-29) mEq/L BUN 60 H (6-20) mg/dL Creatinine 2.28 H (0.60-1.20) mg/dL Glucose 233 H (70-105) mg/dL Calcium 8.7 (8.6-10.3) mg/dL All other labs normal. Consult Discharge Plan - Plan Referrals: Melinda Soto, KENNEL TECHNICIAN [Primary Care Provider] -
--- NOTE | 2018-02-01 10:01 | Discharge Summary ---
- NOTES TO OUTPATIENT PROVIDER Notes to Outpatient Provider: "Instructions per ENT "Fibrillar packing should dissolve over the next several days, use nasal spray decongestant 3 times a day for 3 days, use saline nasal spray 3 times a day for 30 days, Augmentin 875 mg twice a day for another 7 days. Hold Plavix for another 48 hours" Orders not resulted at time of discharge: Pending orders 01/31/18 05:16 25-oh vitamin D [Vitamin D 25 Hydroxy] AM 0400 Date of Encounter: 02/01/18 Time of Encounter: 09:59 - Discharge Diagnosis (1) Acute blood loss anemia Priority: Primary Status: Acute Comments: acute blood loss anemia 2ry to severe epistaxis after procedure, accompanied by hypotension which responded to fluids (2) Epistaxis Priority: Primary Status: Acute (3) Chronic kidney disease-mineral and bone disorder Priority: Secondary Status: Acute (4) Hypertension Priority: Secondary Status: Acute Qualifiers: Hypertension type: essential hypertension Qualified Code(s): I10 - Essential (primary) hypertension (5) Type 1 diabetes mellitus Priority: Secondary Status: Acute Qualifiers: Diabetes mellitus complication status: without complication Qualified Code( s): E10.9 - Type 1 diabetes mellitus without complications (6) CAD (coronary artery disease), habematolel coronary artery Priority: Secondary Status: Acute Qualifiers: [place] vs. transplanted heart: habematolel heart Associated angina: with unspecified angina Qualified Code(s): I25.119 - Atherosclerotic heart disease of habematolel coronary artery with unspecified angina pectoris Hospital course: Ms. Gracia is a 57 year old female with a past medical history of diabetes type 1 uses an insulin pump, chronic kidney disease is stage IV, secondary hyperparathyroidism, CAD s/p 2 stents, HTN, presented to the emergency department with concerns of epistaxis after having esophageal manometry approximately 7-8 hours prior to arrival. Procedure was conducted with endoscope going through the nare, she started bleeding since that time. Attempts were made to stop the bleeding with Afrin, pressure, and anterior packing, but these were unsuccessful so a Rhino Rocket was placed in the emergency department. She has been coughing up some blood clots. Was complaining of some intermittent lightheadedness and one episode of palpitations. Aspirin and Plavix were held. Hemoglobin dropped from 11.9 down to 9.9, now stable, potassium was 5.2 and came down with Kayexalate, today's values 4.9. Was evaluated by ENT, recommendations were given, packed was removed, stable to be discharged. - Time Spent with Patient Total time spent providing and/or coordinating discharge services: Greater than 30 minutes (40 min) - Discharge Medications Prescriptions: Amoxicillin/Clavulanate [Augmentin] 875 mg PO BIDWM #14 tablet Home Medications: Aspirin [Lo-Dose Aspirin EC] 81 mg PO DAILY 06/13/17 [History] Bolus Insulin Pump, 200 Unit [Onetouch Via] 75 - 80 unit MC DAILY 06/13/17 [ History] Cholecalciferol (D-3) [Vitamin D] 5,000 unit PO DAILY 06/13/17 [History] Clopidogrel Bisulfate [Plavix] 75 mg PO DAILY 06/13/17 [History] Fish Oil/Dha/Epa [Fish Oil 1,200 mg Fish Oil] 1 each PO HS 06/13/17 [History] Furosemide [Lasix] 40 mg PO DAILY 06/13/17 [History] Isosorbide MONOnitrate [Isosorbide Mononitrate ER] 120 mg PO DAILY 06/13/17 [ History] Levothyroxine [Synthroid] 100 mcg PO 0630 06/13/17 [History] Losartan Potassium [Cozaar] 50 mg PO DAILY 06/13/17 [History] Metoprolol [Lopressor] 50 mg PO BID 06/13/17 [History] Pravastatin Sodium [Pravachol] 80 mg PO HS 06/13/17 [History] Ranolazine [Ranexa] 500 mg PO BID 06/13/17 [History] Omeprazole [PriLOSEC] 40 mg PO BID 01/30/18 [History] Amoxicillin/Clavulanate [Augmentin] 875 mg PO BIDWM #14 tablet 02/01/18 [Rx] Allergies/Adverse Reactions: 3 Allergy/AdvReac Type Severity Reaction Status Date / Time bumetanide [From Bumex] Allergy See Verified 01/20/18 08:34 Comments Fpjzsgk-Vrr-Xha Reductase Allergy Muscle Pain Verified 01/20/18 08:34 Inhibitor [Statins] SANKET Inhibitors AdvReac Cough Verified 01/20/18 08:34 codeine AdvReac Nausea Verified 03/20/18 08:34 promethazine [From Phenergan] AdvReac Nausea Verified 01/20/18 08:34 Date of admission: 01/30/18 20:14 Primary care physician: Melinda Soto CNP - Constitutional Vitals: Temp Pulse Resp BP Pulse Ox 98.3 F 88 15 184/66 97 02/01/18 07:15 02/01/18 07:15 02/01/18 07:15 02/01/18 07:15 02/01/18 07:15 General appearance: Present: A&O X 3, morbidly obese, no acute distress, answers questions appropriately Exam: Left nares residual blood and new packing - Head Head exam: Present: atraumatic, normocephalic - Eye Eye exam: Present: PERRL, conjuntiva pink, sclera anicteric Pupils: Present: PERRL - Neck Neck exam general surgery: Present: supple, trachea midline. Absent: lymphadenopathy - Respiratory Respiratory exam: Present: CTAB. Absent: accessory muscle use, rales, rhonchi, wheezes - Cardiovascular Cardiovascular exam: Present: RRR, +S1, +S2. Absent: diastolic murmur, gallop, rubs, systolic murmur - GI/Abdominal GI/Abdominal exam: Present: normal bowel sounds, soft, no peritoneal signs. Absent: distended, tenderness - Extremities Exam Extremities exam: Present: warm, radial pulses palpable and symmetrical. Absent : calf tenderness, cyanotic, pedal edema - Neurological Exam Neurological exam: Present: CN II-XII intact, oriented X3, no focal deficits. Absent: pronater drift, facial droop, speech deficit - Skin Skin exam: Present: dry, intact - Patient Status Disposition: Home, Self-Care Condition: Good Overall status at discharge: patient is progressing back to baseline - Discharge Instructions Follow Up With: Melinda Soto CNP [Primary Care Provider] - Additional Instructions: Follow-up with primary care physician within the next 7 days. Follow-up with ENT as needed. "Instructions per ENT "Fibrillar packing should dissolve over the next several days, use nasal spray decongestant 3 times a day for 3 days, use saline nasal spray 3 times a day for 30 days, Augmentin 875 mg twice a day for another 7 days. Hold aspirin and Plavix for another 48 hours" - Diet and Activity Activity: increase activity as tolerated Diet: diabetic diet
[2018-02-01 10:39] VITALS: BP 139/55
[2018-02-02] MEDS ORDERED: Furosemide 40 MG TABLET PO SCH (09:00)
--- NOTE | 2018-02-02 12:25 | Electrocardiograph Report ---
[address] [address] Test Date: 2018-01-30 Pat Name: Marcia [facility] Department: 103 Room: 3A63 Gender: F Representative Personal Service: LRFran : 1960 Requested By: Raleigh Trejo Order Number: [id number] Reading MD: Christiano Shaikh Measurements Intervals [place] Rate: 67 P: 36 RI: 205 QRS: 27 QRSD: 75 T: 61 QT: 390 QTc: 405 Interpretive Statements SINUS RHYTHM LOW QRS VOLTAGE IN PRECORDIAL LEADS Electronically Signed On 02-02-2018 12:23:26 EDT by Christiano Shaikh
== END 2018-02-01 11:13 | disposition home or self-care (01) ==
LOC: EMEROO 16:36 → 3ANU 16:36
PROVIDERS: ADMIT Internal Medicine Nephrology; ATTEND Student in an Organized Health Care Education/Training Program